=== PATIENT | female | born 1960 ===

== ENCOUNTER → 2020-12-27 | Outpatient (CLI) | payer MEDICAID ==
--- NOTE | 2020-12-27 15:37 | REP ---
INDICATION: LT HIP PAIN. COMPARISON: None. 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 IMPRESSION: Early advanced osteoarthritic degenerative changes (left greater than right). <Electronically signed by Tye Mortensen > 12/27/20 [id number]
== END ==
LOC: M SOG 09:47
PROVIDERS: ATTEND Orthopaedic Surgery Adult Reconstructive Orthopaedic Surgery
DX: M16.0 Bilateral primary osteoarthritis of hip (principal); M25.751 Osteophyte, right hip; M25.752 Osteophyte, left hip